=== PATIENT | female | born 2000 | race Caucasian/White ===

== ENCOUNTER 2019-06-21 08:53 | Emergency (ER) | payer SELFPAY ==
[2019-06-21 09:30] LABS: Bilirubin Negative (Negative); Blood, Urine Negative (Negative); Clarity Clear (Clear); Glucose, Urine (Dipstick) Normal (Negative); Leukocyte Negative Leu/uL (Negative); Nitrite Negative (Negative); Protein, Urine (Dipstick) Negative (Neg-Trace); Urobilinogen Normal mg/dL (Less than 2)
[2019-06-21 09:31] LABS: Pregnancy Test - Urine (BHCG) Negative (Negative)
[2019-06-21 09:32] LABS: Pregu Control Background? CLEAR/WHITE (CLR/WHITE); Pregu Control Bar Appear? YES (CONTROL BAR); Specific Gravity 1.001 (1.002-1.036)
[2019-06-21 09:37] LABS: #Basophils 0.1 thou/uL (0.0-0.2); #Eosinphils 0.3 thou/uL (0.0-0.7); #Monocytes 0.6 thou/uL (0.11-0.59); #Neutrophils 6.6 thou/uL (1.40-6.50); %Basophils 0.7 % (0.0-1.0); %Eosinophils 2.9 % (0.0-10.0); %Lymphocytes 21.1 % (28.0-48.0); %Monocytes 5.9 % (0.0-4.0); %Neutrophils 69.4 % (31.0-61.0); Hemoglobin 12.8 g/dL (12.0-16.0); Mean Corpuscular HGB CONC 33.7 g/dL (32.0-36.0); Mean Corpuscular Hemoglobin 27.5 pg (25.0-35.0); Mean Corpuscular Volume 81.5 fL (78.0-98.0); Mean Platelet Volume 8.5 fL (7.4-10.4); Platelet Count 264 thou/uL (130-400); RBC Distribution Width 13.1 % (11.5-14.5); Red Blood Cell (RBC) Count 4.64 mill/uL (4.00-5.20); White Blood Cell (WBC) Count 9.5 thou/uL (4.8-10.8)
[2019-06-21 09:58] LABS: Anion Gap 14 mmol/L (10-20); BUN (Urea Nitrogen) 10 mg/dL (7.0-18.7); Calc. Creatinine Clearance 0 mL/min (70-130); Calcium 9.2 mg/dL (7.8-10.44); Carbon Dioxide 22 mmol/L (22-29); Chloride 109 mmol/L (98-107); Estimated GFR-MDRD Greater than 90; Glucose 114 mg/dL (70-105); Potassium 3.7 mmol/L (3.5-5.1); Sodium 141 mmol/L (136-145)
[2019-06-21] MEDS ORDERED: Metoclopramide 10 MG/10 ML UDCUP ONE (10:13)
[2019-06-21] MEDS ORDERED: diphenhydrAMINE 50 MG/ML VIAL ONE (10:13)
[2019-06-21] MEDS ORDERED: Ondansetron PF 4 MG/2 ML Vial ONE (10:13)
[2019-06-21] MEDS ORDERED: Ketorolac Tromethamine 30 MG/ML VIAL ONE (10:13)
[2019-06-21] MEDS ORDERED: Metoclopramide HCl 10 MG/2 ML VIAL ONE (10:14)
--- NOTE | 2019-06-21 10:36 | ULT ---
Right upper quadrant ultrasound: 06/21/2019 COMPARISON: None HISTORY: Right upper quadrant pain TECHNIQUE: Multiplanar grayscale sonographic imaging of the right upper quadrant provided. FINDINGS: The pancreas is obscured by bowel gas. The hepatic parenchyma is echogenic and heterogeneous, limiting assessment for focal lesion and bilia ry dilatation. This suggest hepatic steatosis. Detailed assessment of the hepatic parenchyma, especially the right lobe of the liver, is markedly suboptimal. No gallbladder wall thickening or pericholecystic fluid. No gallstones are seen. The lock up worker repo rts a negative Doran's sign. Right kidney measures 10 cm in craniocaudal dimension and demonstrates no stone, hydronephrosis, or m ass lesion. Common bile duct measures approximately 6-7 mm. This is an prominent in a patient of this age. IMPRESSION: Findings suggesting hepatic steatosis. No gallstones are seen. Common bile duct measures 6-7 mm. Correlation with liver function tests thus advised. Biliary obstruc tion cannot be excluded.
--- NOTE | 2019-06-21 10:50 | CT ---
CT BRAIN WITHOUT CONTRAST: HISTORY: Headache FINDINGS: No evidence of acute infarct, hemorrhage, midline shift or abnormal extra-axial fluid collections is seen. The ventricular size is appropriate and the basilar cisterns are patent. The bony calvarium is intact. The visualized paranasal sinuses and mastoid air cells are well aerated. IMPRESSION: No CT evidence of acute intracranial process.
[2019-06-21 11:07] LABS: ALT (SGPT) 29 U/L (8-55); AST (SGOT) 24 U/L (5-34); Albumin 4.5 g/dL (3.5-5.0); Alkaline Phosphatase 121 U/L (40-150); Bilirubin, Direct 0.2 mg/dL (0.1-0.3); Bilirubin, Total 0.6 mg/dL (0.2-1.2); Protein, Total 8.1 g/dL (6.0-8.3)
--- NOTE | 2019-06-21 11:25 | CT ---
EXAM: CT ABDOMEN AND PELVIS HISTORY: Abdominal pain after eating, x1 month. History of stomach ulcers. COMPARISON: None. Procedure: Multiple contiguous axial images were obtained and a CT of the abdomen and pelvis with IV contrast. C oronal reformats were performed. FINDINGS: Lower Chest: Dependent atelectatic changes Vessels: Normal caliber aorta Heart: Normal heart size Abdomen: Portal vein:Patent Gallbladder: No calcified gallstones. Normal caliber wall. Liver: Diffuse hypoattenuation due to hepatic steatosis. Pancreas: within normal limits. Spleen: within normal limits. Adrenals: within normal limits. Kidneys: Symmetric enhancement. No obstructive uropathy. In the left upper quadrant, there is a well-circumscribed hypodensity measuring 3.5 x 3.0 cm. Attenua tion coefficient is 22 Hounsfield units. The possibility of a slightly complex cyst is raised. Note, the exact origin is uncertain. The hypodense lesion is adjacent to the adrenal gland as well as the upper pole of the left kidney. Peritoneum: No ascites or free air, no fluid collection. Bowel: Normal caliber small bowel. Ileocecal junction is normal. Normal caliber appendix. Scattered f ecal material in nondistended, nondilated colon. Mesentery and Retroperitoneum: There are few scattered borderline mesenteric lymph nodes. There is an enlarged aortocaval lymph node measuring 1.1 x 0.8 cm. Abdominal Wall: within normal limits. Pelvis: Reproductive Organs: No pelvic masses. Pelvis: within normal limits. Bladder: within normal limits. Bones: within normal limits. IMPRESSION: 1. No evidence of an acute abnormality in the abdomen or pelvis 2. Nonspecific enlarged retrocrural peritoneal and mesenteric lymph nodes. Correlate for mesenteric l ymphadenitis. 3. Hypodensity in the left upper quadrant as described above. Nonemergent abdomen MRI can be performe d for possible better interrogation.
[2019-06-21] MEDS ORDERED: ISOVUE-370 76%-LOCM 1 ML ONE (15:21)
== END 2019-06-21 11:49 | disposition home or self-care (01) ==
LOC: ERS 08:53
DX: R10.30 Lower abdominal pain, unspecified (principal); R51 Headache; I10 Essential (primary) hypertension; E03.9 Hypothyroidism, unspecified; G43.909 Migraine, unspecified, not intractable, without status migrainosus
CPT/HCPCS: 36415; 70450; 74177; 76705; 80048; 80076; 81003; 81025; 83690; 85025; 96365; 96375; J1200; J1885; J2405; J2765; Q9966